=== PATIENT | male | born 1985 | race Caucasian/White ===

== ENCOUNTER 2020-08-23 08:05 | Emergency (ER) | payer OTHER ==
[~2020-08-23] VITALS: Ht 188 cm; Wt 130.8 kg
[2020-08-23] MEDS ORDERED: IV NORMAL SALINE 1,000ML 1,000 ML IV ONE (08:45)
[2020-08-23] MEDS ORDERED: KETOROLAC 30 MG/ML VIAL. IVP ONE (08:45)
--- NOTE | 2020-08-23 08:53 | PHYS DOC ---
General Adult EDM: Chief Complaint: SHORTNESS OF BREATH HPI: HPI: 35-year-old male presents with multiple complaints. The patient has been feeling short of breath tired since yesterday. He got his Tdap and Pneumovax vaccines. He tells me that he has some general body aches and felt mildly feverish. Mild pressure sensation headache. He tells me that he had the symptoms the night before he got the vaccine but felt normal the morning of the day got the vaccines. He also states he had tip of the penis pain week and a half ago that got better. The patient denies vomiting, diarrhea, chest pain. He has history of asthma in the past. Review of Systems: Review of Systems: Constitutional: Chills Eyes: Denies change in visual acuity HENT: Denies nasal congestion or sore throat Respiratory: Shortness of breath Cardiovascular: Denies chest pain or edema GI: Denies abdominal pain, nausea, vomiting, bloody stools or diarrhea : Denies dysuria Musculoskeletal: Body aches Integument: Denies rash Neurologic: Headache. Denies focal weakness or sensory changes Endocrine: Denies polyuria or polydipsia Lymphatic: Denies swollen glands Psychiatric: Denies depression or anxiety Current Medications: Current Meds: Current Medications Medications (Trade) Dose Ordered Sig/Vickey Start Time Stop Time Status Last Admin Dose Admin Ketorolac Tromethamine (Toradol 30mg Vial) 30 mg 1X ONCE 08/23/20 08:45 08/23/20 08:46 UNV Sodium Chloride 1,000 ml @ 1,000 mls/hr 1X ONCE 08/23/20 08:45 08/23/20 09:44 UNV Physical Exam: PE: Constitutional: Well developed, well nourished, obese, no acute distress, non- toxic appearance. [] HENT: Normocephalic, atraumatic, bilateral external ears normal, oropharynx moist, no oral exudates, nose normal. [] Eyes: PERRLA, EOMI, conjunctiva normal, no discharge. [] Neck: Normal range of motion, no tenderness, supple, no stridor. [] Cardiovascular: Heart rate 33, regular rhythm, 3 out of 6 systolic murmur [] Lungs & Thorax: Bilateral breath sounds clear to auscultation [] Abdomen: Bowel sounds normal, soft, no tenderness, no masses, no pulsatile masses. [] Skin: Warm, dry, no erythema, no rash. [] Back: No tenderness, no CVA tenderness. [] Extremities: No tenderness, no cyanosis, no clubbing, ROM intact, no edema. [] Neurologic: Alert and oriented X 3, normal motor function, normal sensory function, no focal deficits noted. [] Psychologic: Affect normal, judgement normal, mood anxious. [] EKG: EKG: Sinus rhythm, rate 79, leftward axis, no ST elevation or depression. [] Radiology/Procedures: Radiology/Procedures: [] Impressions: EXAM: Chest, single view. HISTORY: Shortness of breath. COMPARISON: None. FINDINGS: A frontal view of the chest obtained. There is no infiltrate, pleural effusion or pneumothorax. The heart is normal in size. IMPRESSION: No acute pulmonary finding. Electronically signed by: Trice Johnson MD (08/23/2020 8:54 AM) [facility] DICTATED AND SIGNED BY: TRICE JOHNSON MD DATE: 08/23/20853 CC: AMY WALTERS DO; NEELAM PINEDA [place] ~MTH0 0 Heart Score: C/O Chest Pain: N/A Risk Factors: Risk Factors: DM, Current or recent (<one month) smoker, HTN, HLP, family history of CAD, obesity. Risk Scores: Score 0 - 3: 2.5% MACE over next 6 weeks - Discharge Home Score 4 - 6: 20.3% MACE over next 6 weeks - Admit for Clinical Observation Score 7 - 10: 72.7% MACE over next 6 weeks - Early Invasive Strategies Course & Med Decision Making: Course & Med Decision Making Pertinent Labs and Imaging studies reviewed. (See chart for details) The patient's EKG is unremarkable. His labs are unremarkable except for some elevated liver enzymes. The patient told my nurse that he was drinking alcohol last night. This could be a contributor. It also would explain why his urine was very dark. Patient did seem a bit dehydrated. We gave him 2 L of normal saline. His chest x-ray is negative for acute findings. His urinalysis is negative for infection. The patient is likely having an expected reaction from his vaccines and/or not feeling well due to the alcohol consumption. He is stable for discharge at this time. [] Dragon Disclaimer: Dragon Disclaimer: This electronic medical record was generated, in whole or in part, using a voice recognition dictation system. Departure Departure: Impression: Primary Impression: Vaccine reaction Qualified Codes: T50.Z95A - Adverse effect of other vaccines and biological substances, initial encounter Additional Impressions: Dehydration Elevated liver enzymes Disposition: HOME / SELF CARE / HOMELESS Condition: STABLE Referrals: NEELAM PINEDA (PCP) Patient Instructions: Dehydration, Adult, [id number] AMY WALTERS DO Aug 23, 2020 08:53
--- NOTE | 2020-08-23 08:56 | RAD ---
EXAM: Chest, single view. HISTORY: Shortness of breath. COMPARISON: None. FINDINGS: A frontal view of the chest obtained. There is no infiltrate, pleural effusion or pneumotho rax. The heart is normal in size. IMPRESSION: No acute pulmonary finding. Electronically signed by: Trice Johnson MD (08/23/2020 8:54 AM) [facility]
[2020-08-23] MEDS ORDERED: diphenhydrAMINE 50 MG/ML VIAL IVP ONE (09:00)
[2020-08-23 09:02] LABS: BASO % 0 % (0-3); EOS % 0 % (0-3); HEMOGLOBIN 13.5 g/dL (13.0-17.5); LYMPH # 2.2 x10^3/uL (1.0-4.8); LYMPH % 20 % (24-48); MEAN CORPUSCULAR HEMOGLOBIN 32 pg (25-35); MEAN CORPUSCULAR HGB CONC 35 g/dL (31-37); MEAN CORPUSCULAR VOLUME 91 fL (79-100); MONO % 9 % (0-9); NEUT # 7.6 x10^3uL (1.8-7.7); NEUT % 70 % (31-73); PLATELET COUNT 207 x10^3/uL (140-400); RED BLOOD COUNT 4.28 x10^6/uL (4.30-5.70); RED CELL DISTRIBUTION WIDTH 13.8 % (11.5-14.5); WHITE BLOOD COUNT 10.8 x10^3/uL (4.0-11.0)
[2020-08-23 09:20] LABS: CALCIUM 8.4 mg/dL (8.5-10.1); CREATININE 1.1 mg/dL (0.7-1.3); GFR 77.1; POTASSIUM 4.1 mmol/L (3.5-5.1)
[2020-08-23 09:25] LABS: ALBUMIN 3.5 g/dL (3.4-5.0); ALBUMIN/GLOBULIN RATIO 1.1 (1.0-1.7); TOTAL BILIRUBIN 1.3 mg/dL (0.2-1.0); TOTAL PROTEIN 6.8 g/dL (6.4-8.2)
--- NOTE | 2020-08-23 09:49 | EKG ---
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
[2020-08-23 09:55] VITALS: BP 124/83
[2020-08-23 11:28] LABS: BILIRUBIN,URINE NEG (NEG); CLARITY,URINE HAZY; COLOR,URINE YELLOW; GLUCOSE,URINE NEG (NEG); NITRITE,URINE NEG (NEG)
[2020-08-23 11:29] LABS: BACTERIA,URINE 0 /HPF (0-FEW); RBC,URINE 0 /HPF (0-2); WBC,URINE 0 /HPF (0-4)
== END 2020-08-23 11:52 | disposition home or self-care (01) ==
LOC: ER 08:05
DX: T88.1XXA Other complications following immunization, not elsewhere classified, initial encounter (principal); E86.0 Dehydration; R74.8 Abnormal levels of other serum enzymes
CPT/HCPCS: 36415; 71045; 80053; 81001; 84484; 85025; 93005; 96361; 96374; 96375; 99285; J1200; J1885; J7030